=== PATIENT | female | born 1975 | race Two or more races ===

== ENCOUNTER 2018-04-23 16:01 | Emergency (ER) | payer BC, OTHER ==
--- NOTE | 2018-04-23 16:34 | EDPHY ---
H & P Time Seen by Provider: 04/23/18 16:13 HPI/ROS: Chief complaint. Back pain HPI. Patient is a 42-year-old female presents with low back pain for 1 day. She had a capsule endoscopy 6 days ago and developed GERD. She was seen in emergency department for abdominal pain 5 days ago and her symptoms were improved with some morphine and GI cocktail. Abdominal symptoms have resolved yesterday. No nausea vomiting or abdominal pain now. Due to her decreased activity over the last several days because of her abdominal pain she walked 2 nights ago and then walking with kids yesterday. However there was no injury or unusual activity. She does have occasional low back pain after prolonged sitting. Her pain is described as in the low back and hip to hip the worse on the left. No radiation to her legs. No leg weakness. No bowel or bladder symptoms. She was prescribed Flexeril by her PCP and took a Flexeril tab at 8: 30 a.m. This morning and Tylenol at 6:30 a.m. And 11:30 a.m.. No fever. No urinary symptoms. ROS 10 systems were reviewed and negative with the exception of the elements mentioned in the history of present illness Past Medical/Surgical History: , GERD Social History: , nonsmoker, no alcohol Smoking Status: Never smoked Physical Exam: General Appearance: Alert pleasant well-developed female appears uncomfortable moderate distress vital signs are stable Eyes: Pupils equal and round no pallor or injection. ENT, Mouth: Mucous membranes are moist. Respiratory: There are no retractions, lungs are clear to auscultation. Cardiovascular: Regular rate and rhythm. Gastrointestinal: Abdomen is soft and nontender, no masses, bowel sounds normal. Neurological: Awake and alert, sensory and motor exams grossly normal. Deep tendon reflexes are symmetrical. Great toe strength is normal. Leg sensation is normal without saddle anesthesia. Straight leg raising positive on the left at 30 degrees. Skin: Warm and dry, no rashes. Musculoskeletal: Neck is supple nontender. Diffuse tenderness across the lumbar area. No particular tenderness over the lumbar spine. Extremities symmetrical, full range of motion. Psychiatric: Patient is oriented X 3, there is no agitation. Constitutional: Initial Vital Signs Temperature (C) 36.7 C 04/23/18 16:07 Heart Rate 67 04/23/18 16:07 Respiratory Rate 20 04/23/18 16:07 Blood Pressure 103/53 L 04/23/18 16:07 O2 Sat (%) 95 04/23/18 16:07 O2 Delivery Mode Room Air Allergies/Adverse Reactions: No Known Allergies Allergy (Unverified 04/23/18 16:18) Home Medications: Medication Instructions Recorded NK [No Known Home Meds] 04/23/18 Medical Decision Making Procedures: IV normal saline. IV Toradol. IV Ativan. Lidocaine patch ED Course/Re-evaluation: Re-evaluation 6:00 p.m.. Patient is resting comfortably. Improving low back pain. Vital signs remained stable Re-evaluation again at 6:30 p.m.. Patient is stable. Feeling better. Still somewhat sleepy. We will ambulate her. Ambulatory in the emergency department and improved Patient and I discussed treatment plan including criteria for return and importance of follow-up and further evaluation. We reviewed low back pain precautions. She expresses understanding and agreement She will be given take-home hydrocodone as well Differential Diagnosis: This appears to be lumbar strain. No evidence for cauda equina syndrome, sciatica. I considered HNP is well - Data Points Medications Given: Miscellaneous Information (Patch Removal) 1 ea TD [id number] IAN Stop: 10/20/18 20:59 Last Admin: 04/23/18 17:07 Dose: 1 ea Discontinued Medications Ketorolac Tromethamine (Toradol) 30 mg IVP EDNOW ONE Stop: 04/23/18 16:45 Last Admin: 04/23/18 16:58 Dose: 30 mg Lorazepam (Ativan Injection) 1 mg IVP EDNOW ONE Stop: 04/23/18 16:46 Last Admin: 04/23/18 17:02 Dose: 1 mg Miscellaneous Medication (Icy Hot Lidocaine/Menthol 4%/1% Patch) 1 patch TD EDNOW ONE Stop: 04/23/18 16:45 Last Admin: 04/23/18 17:04 Dose: 1 patch Departure - Departure Disposition: Home, Routine, Self-Care Clinical Impression: Low back pain Qualifiers: Chronicity: acute Back pain laterality: bilateral Sciatica presence: without sciatica Qualified Code(s): M54.5 - Low back pain Condition: Good Instructions: Low Back Strain (ED) Additional Instructions: Ibuprofen 600 mg every 6 hr for discomfort Hydrocodone and ibuprofen are fine taken together though separate by about half an hour and take with food on your stomach to prevent stomach irritation. Hydrocodone dose is 1 pill every 4-6 hours as needed for pain Hydrocodone has some Tylenol in it so may use hydrocodone or Tylenol. Flexeril as muscle relaxer Lidocaine patch to your low back over the next 3 days. Activity as tolerated Return for leg weakness, bowel or bladder symptoms. Recheck in 2 days if not improving Referrals: Kallie Bowman MD [Primary Care Provider] - 2-3 days, if not improved Stand Alone Forms: Airline Excuse
[2018-04-23] MEDS ORDERED: LIDOCAINE 4%/MENTHOL 1% PATCH TD ONE (16:44)
[2018-04-23] MEDS ORDERED: KETOROLAC 15 MG/1 ML SDV IVP ONE (16:44)
[2018-04-23] MEDS ORDERED: LORazepam 2 MG/ML INJ IVP ONE (16:45)
[2018-04-23] MEDS ORDERED: HYDROCOD/APAP 5/325 PREPACK#6 BTL TAKEHOME ONE (18:59)
[2018-04-23 19:43] VITALS: BP 104/70
[2018-04-23] MEDS ORDERED: PATCH REMOVAL 1 EA PATCH TD SCH (21:00)
== END 2018-04-23 19:30 | disposition home or self-care (01) ==
LOC: CED 16:01
DX: M54.5 Low back pain (principal)
CPT/HCPCS: 96374-ER; 96375-ER; 99284-ER; J1885; J2060